=== PATIENT | female | born 1955 | race Caucasian/White ===

== ENCOUNTER 2021-02-04 20:19 | Inpatient (IN) | payer OTHER ==
[2021-02-04 21:16] LABS: BASO % 0.8 % (0-2.0); EOS % 1.2 % (0-4.5); HEMATOCRIT 23.9 % (32.4-45.2); HEMOGLOBIN 7.4 GM/dL (10.7-15.3); LYMPH % 20.9 % (8-40); MCH 27.6 pg (25.7-33.7); MCHC 30.9 g/dl (32.0-36.0); MEAN CELL VOLUME 89.2 fl (80-96); MEAN PLT VOLUME 8.2 fl (7.5-11.1); MONO % 8.9 % (3.8-10.2); NEUT % 68.2 % (42.8-82.8); PLATELET COUNT 129 K/MM3 (134-434); RBC 2.68 M/mm3 (3.60-5.2); RDW 16.8 % (11.6-15.6); WHITE BLOOD COUNT 4.9 K/mm3 (4.0-10.0)
[2021-02-04 21:22] LABS: CALCIUM 7.8 mg/dL (8.5-10.1)
[2021-02-04 21:23] LABS: BLOOD UREA NITROGEN 43.2 mg/dL (7-18)
[2021-02-04 21:26] LABS: CREATININE 2.5 mg/dL (0.55-1.3)
[2021-02-04 21:45] LABS: ANISOCYTOSIS 2+; MACROCYTOSIS 0; PLATELET ESTIMATE DECREASED; TARGET CELLS 1+
[2021-02-04] MEDS ORDERED: HEPARIN NA (PORCINE) 5,000 UNITS/ML 1ML VIAL SQ SCH (23:00)
[2021-02-04] MEDS ORDERED: APIXABAN 5 MG TABLET PO SCH (23:15)
[2021-02-05 02:04] VITALS: BMI 28.0
[2021-02-05] MEDS: PANTOPRAZOLE 40 MG TABLET PO SCH (06:02)
[2021-02-05] MEDS: INSULIN SLIDING SCALE (NOVOLOG) 1 VIAL SQ SCH ×4 (06:42→22:37)
[2021-02-05] MEDS ORDERED: PT OWN MED DRAWER 7, Y5N ONE ×3 (08:52→21:00)
[2021-02-05] MEDS: predniSONE 5 MG TABLET (UD) PO SCH (09:02)
[2021-02-05] MEDS: FOLIC ACID 1 MG TABLET (FP) PO SCH (09:02)
[2021-02-05] MEDS: amLODIPine BESYLATE 5 MG TABLET (FP) PO SCH (09:02)
[2021-02-05] MEDS: CALCIUM ACETATE 667 MG CAPSULE (FP) PO SCH ×3 (09:02→16:58)
[2021-02-05] MEDS: VORICONAZOLE 200 MG TABLET (RESTRICTED TO ID) PO SCH ×2 (09:41→21:15)
[2021-02-05] MEDS: VORICONAZOLE 50 MG TABLET (RESTRICTED TO ID) PO SCH ×2 (09:42→21:15)
[2021-02-05] MEDS: CALCITRIOL 0.25 MCG CAPSULE (FP) PO SCH (09:43)
[2021-02-05] MEDS: ENTECAVIR 0.5 MG TABLET PO SCH (09:43)
[2021-02-05 09:54] LABS: HEMATOCRIT 22.7 % (32.4-45.2); HEMOGLOBIN 7.1 GM/dL (10.7-15.3); MCH 27.6 pg (25.7-33.7); MCHC 31.2 g/dl (32.0-36.0); MEAN CELL VOLUME 88.4 fl (80-96); MEAN PLT VOLUME 8.7 fl (7.5-11.1); PLATELET COUNT 149 K/MM3 (134-434); RBC 2.57 M/mm3 (3.60-5.2); RDW 16.9 % (11.6-15.6)
[2021-02-05] MEDS ORDERED: TACROLIMUS 0.5 MG CAPSULE PO SCH (10:00)
[2021-02-05] MEDS ORDERED: MYCOPHENOLATE MOFETIL 500 MG TABLET PO SCH (10:00)
[2021-02-05 10:12] LABS: BLOOD UREA NITROGEN 45.6 mg/dL (7-18)
[2021-02-05 10:16] LABS: CREATININE 2.4 mg/dL (0.55-1.3); MAGNESIUM 1.3 mg/dL (1.8-2.4); PHOSPHOROUS 4.7 mg/dL (2.5-4.9)
[2021-02-05 10:24] LABS: N-TERMINAL BNP 3044.7 pg/ml (5-125)
[2021-02-05] MEDS: TACROLIMUS 0.5 MG CAPSULE PO SCH (15:50)
[2021-02-05] MEDS: MYCOPHENOLATE MOFETIL 250 MG CAPSULE PO SCH (15:51)
[2021-02-05] MEDS ORDERED: ACETAMINOPHEN 325 MG TABLET (FP) PO ONE (18:13)
[2021-02-05] MEDS ORDERED: SODIUM CHLORIDE 250 ML IV PRN (19:31)
[2021-02-05] MEDS ORDERED: TACROLIMUS ANHYDROUS 1 MG CAPSULE PO SCH (22:00)
[2021-02-05] MEDS ORDERED: SENNOSIDES 8.6MG TABLET (FP) PO SCH (22:00)
[2021-02-05] MEDS ORDERED: QUEtiapine FUMARATE 25 MG TABLET PO SCH (22:00)
[2021-02-05] MEDS ORDERED: ROSUVASTATIN CA 5 MG TABLET (FP) PO SCH (22:00)
[2021-02-06] MEDS: MYCOPHENOLATE MOFETIL 250 MG CAPSULE PO SCH ×3 (01:00→21:33)
[2021-02-06] MEDS ORDERED: MAGNESIUM SULF 50% (8.12 MEQ/2 ML-1 GM VIAL) IVPB ONE (02:45)
[2021-02-06] MEDS: INSULIN SLIDING SCALE (NOVOLOG) 1 VIAL SQ SCH ×4 (05:59→21:31)
[2021-02-06] MEDS: PANTOPRAZOLE 40 MG TABLET PO SCH (06:00)
[2021-02-06] MEDS: CALCIUM ACETATE 667 MG CAPSULE (FP) PO SCH ×3 (08:26→17:26)
[2021-02-06] MEDS: TACROLIMUS 0.5 MG CAPSULE PO SCH (10:20)
[2021-02-06] MEDS: ENTECAVIR 0.5 MG TABLET PO SCH (10:20)
[2021-02-06] MEDS: CALCITRIOL 0.25 MCG CAPSULE (FP) PO SCH (10:20)
[2021-02-06] MEDS: FOLIC ACID 1 MG TABLET (FP) PO SCH (10:20)
[2021-02-06] MEDS: predniSONE 5 MG TABLET (UD) PO SCH (10:20)
[2021-02-06] MEDS: amLODIPine BESYLATE 5 MG TABLET (FP) PO SCH ×2 (10:20→11:02)
[2021-02-06] MEDS ORDERED: HEPARIN NA (PORCINE) 5,000 UNITS/ML 1ML VIAL ONE ×2 (13:16→15:00)
[2021-02-06] MEDS ORDERED: LIDOCAINE HCL 1%, 10 MG/ML (20ML VIAL) ONE (13:17)
[2021-02-06] MEDS ORDERED: ceFAZolin SODIUM 1 GM VIAL ONE (14:05)
[2021-02-06] MEDS ORDERED: MIDAZOLAM HCL 2 MG/2 ML SINGLE DOSE VIAL ONE (14:05)
[2021-02-06] MEDS ORDERED: VORICONAZOLE 50 MG TABLET (RESTRICTED TO ID) PO SCH (14:30)
[2021-02-06] MEDS ORDERED: VORICONAZOLE 200 MG TABLET (RESTRICTED TO ID) PO SCH (14:30)
[2021-02-06] MEDS ORDERED: LIDOCAINE HCL 1%, 10 MG/ML (20ML VIAL) NR ONE ×2 (14:31)
[2021-02-06] MEDS ORDERED: SODIUM CHLORIDE 250 ML IV PRN (15:36)
[2021-02-06] MEDS ORDERED: PT OWN MED DRAWER 7, Y5N ONE ×2 (17:30→21:24)
[2021-02-06] MEDS ORDERED: INSULIN (NOVOLOG) ASPART 100 UNITS/ML 10ML VIAL ONE (21:25)
[2021-02-06] MEDS: VORICONAZOLE 200 MG TABLET (RESTRICTED TO ID) PO SCH (21:35)
[2021-02-06] MEDS: VORICONAZOLE 50 MG TABLET (RESTRICTED TO ID) PO SCH (21:35)
[2021-02-06] MEDS ORDERED: TACROLIMUS ANHYDROUS 1 MG CAPSULE PO SCH (22:00)
[2021-02-06] MEDS ORDERED: QUEtiapine FUMARATE 25 MG TABLET PO SCH (22:00)
[2021-02-06] MEDS ORDERED: SENNOSIDES 8.6MG TABLET (FP) PO SCH (22:00)
[2021-02-06] MEDS ORDERED: ROSUVASTATIN CA 5 MG TABLET (FP) PO SCH (22:00)
[2021-02-07] MEDS: INSULIN SLIDING SCALE (NOVOLOG) 1 VIAL SQ SCH ×3 (06:33→17:02)
[2021-02-07] MEDS ORDERED: PANTOPRAZOLE 40 MG TABLET PO SCH (07:00)
[2021-02-07] MEDS: CALCIUM ACETATE 667 MG CAPSULE (FP) PO SCH ×3 (08:10→16:55)
[2021-02-07] MEDS ORDERED: amLODIPine BESYLATE 5 MG TABLET (FP) PO SCH (10:00)
[2021-02-07] MEDS ORDERED: CALCITRIOL 0.25 MCG CAPSULE (FP) PO SCH (10:00)
[2021-02-07] MEDS ORDERED: predniSONE 5 MG TABLET (UD) PO SCH (10:00)
[2021-02-07] MEDS ORDERED: TACROLIMUS 0.5 MG CAPSULE PO SCH (10:00)
[2021-02-07] MEDS ORDERED: FOLIC ACID 1 MG TABLET (FP) PO SCH (10:00)
[2021-02-07] MEDS ORDERED: ENTECAVIR 0.5 MG TABLET PO SCH (10:00)
[2021-02-07] MEDS ORDERED: PT OWN MED DRAWER 7, Y5N ONE (10:13)
[2021-02-07] MEDS: MYCOPHENOLATE MOFETIL 250 MG CAPSULE PO SCH (10:23)
[2021-02-07] MEDS: VORICONAZOLE 50 MG TABLET (RESTRICTED TO ID) PO SCH (10:24)
[2021-02-07] MEDS: VORICONAZOLE 200 MG TABLET (RESTRICTED TO ID) PO SCH (10:24)
[2021-02-07 14:34] VITALS: BP 124/52; PULSE 95; TEMP 98.8
[2021-02-07] MEDS ORDERED: ZINC OXIDE 20% TOPICAL OINTMENT 30 GM TUBE TP SCH (22:00)
[2021-02-09 02:07] LABS: HEP B CORE AB, TOT Positive (Negative)
== END 2021-02-07 20:51 | DRG 314 ==
LOC: JER 20:19 → JERBED 22:32 → J6S 02-05 01:11
PROVIDERS: ADMIT Internal Medicine; ATTEND Internal Medicine
PROC: 0J2SXYZ Change Other Device in Head and Neck Subcutaneous Tissue and Fascia, External Approach (ICD-10-PCS; 2021-02-06)
PROC: 5A1D70Z Performance of Urinary Filtration, Intermittent, Less than 6 Hours Per Day (ICD-10-PCS; principal; 2021-02-06 14:00)
DX: T82.898A Other specified complication of vascular prosthetic devices, implants and grafts, initial encounter (principal); N18.6 End stage renal disease; I12.0 Hypertensive chronic kidney disease with stage 5 chronic kidney disease or end stage renal disease; Z94.1 Heart transplant status; Z94.0 Kidney transplant status; B19.10 Unspecified viral hepatitis B without hepatic coma; Y83.8 Other surgical procedures as the cause of abnormal reaction of the patient, or of later complication, without mention of misadventure at the time of the procedure; E66.9 Obesity, unspecified; Z68.28 Body mass index [BMI] 28.0-28.9, adult; E11.22 Type 2 diabetes mellitus with diabetic chronic kidney disease; D63.8 Anemia in other chronic diseases classified elsewhere; Z99.2 Dependence on renal dialysis
CPT/HCPCS: 36415; 36430; 71045-TC-FY; 76000-TC-FY; 80048; 82962; 83735; 83880; 84100; 85025; 85027; 86704; 86706; 86707; 86708; 86709; 86803; 86850; 86900; 86901; 86922; 87340; 88300-TC; 99285-25; C9803; J1644; J3465; J7517; P9058; U0003; U0005